=== PATIENT | female | born 1975 | race Two or more races ===

== ENCOUNTER 2018-04-09 00:54 | Emergency (ER) | payer OTHER ==
[2018-04-09] MEDS ORDERED: ONDANSETRON HCL INJ/PF 4 MG/2 ML SDV IV ONE (01:15)
[2018-04-09] MEDS ORDERED: NORMAL SALINE 1000 ML 1,000 ML IV ONE ×2 (01:15→03:21)
[2018-04-09 01:24] LABS: ABSOLUTE LYMPHOCYTES (AUTO) 0.5 10^3/uL (0.5-4.7); ABSOLUTE MONOCYTES (AUTO) 0.1 10^3/uL (0.1-1.4); ABSOLUTE NEUT (AUTO) 6.2 10^3/uL (1.7-8.2); BASOPHILS % (AUTO) 0.4 % (0-2); HEMATOCRIT 47.9 % (36.0-47.0); HEMOGLOBIN 16.3 g/dL (12.0-15.5); LYMPHOCYTES % (AUTO) 7.5 % (13-45); MEAN CORPUSCULAR HEMOGLOBIN 31.9 pg (27.0-33.4); MEAN CORPUSCULAR VOLUME 94 fl (80-97); MONOCYTES % (AUTO) 1.9 % (3-13); PLATELET COUNT 230 10^3/uL (150-450); RED CELL DISTRIBUTION WIDTH 13.1 % (11.5-14.0); SEGMENTED NEUTROPHILS % (AUTO) 90.2 % (42-78); TOTAL CELLS COUNTED % (AUTO) 100 %; WHITE BLOOD COUNT 6.8 10^3/uL (4.0-10.5)
--- NOTE | 2018-04-09 01:25 | ER Document Report ---
ED General - General Chief Complaint: Abdominal Pain Stated Complaint: ABDOMINAL PAIN Time Seen by Provider: 04/09/18 01:14 TRAVEL OUTSIDE OF THE [place] IN LAST 30 DAYS: No - HPI Notes: Patient is a 43-year-old female with a history of hypertension, not currently on medications, who presents to the ED complaining of nausea, vomiting, diarrhea 24 hours as well as developing bilateral sternal chest soreness that began this past evening after she had vomited a few times. Patient states that the pain does not radiate. Patient does have abdominal cramping that comes in waves, but has periods of no pain at all. Patient states that when she vomits or has diarrhea, the cramping resolves. Patient states that the stomach illness is running through her household at this time. She has been unable to keep any fluids or food down which brought her to the emergency department. Patient was on amlodipine 5 mg for her blood pressure. She denies any other significant cardiopulmonary medical history. Denies any prolonged immobilization, recent surgery/trauma, previous DVT/PE, hormone replacement. Patient does admit to smoking but denies IV drug use. Denies any headache, fever, neck pain, URI, sore throat, palpitations, syncope, cough, shortness of breath, wheeze, dyspnea, urinary retention, dysuria, hematuria, back pain, loss of control of bowel or bladder, numbness/tingling, saddle anesthesia, muscle paralysis/weakness, or rash. - Related Data Allergies/Adverse Reactions: Penicillins Allergy (Severe, Verified 03/26/16 01:46) Hives Past Medical History - Social History Smoking Status: Current Every Day Smoker Family History: Reviewed & Not Pertinent - Past Medical History Cardiac Medical History: Reports: Hx Hypertension Pulmonary Medical History: Reports: Hx Bronchitis - Immunizations Hx Diphtheria, Pertussis, Tetanus Vaccination: Yes Review of Systems - Review of Systems -: Yes All other systems reviewed and negative Physical Exam - Vital signs Vitals: Temp Pulse Resp BP Pulse Ox 98.2 F 84 32 H 194/127 H 99 04/09/18 01:01 04/09/18 01:01 04/09/18 01:01 04/09/18 01:01 04/09/18 01:01 - Notes Notes: PHYSICAL EXAMINATION: GENERAL: Well-appearing, well-nourished and in no acute distress, but did vomit with me in the room. A&ox4. Answers questions appropriately. HEAD: Atraumatic, normocephalic. EYES: Pupils equal round and reactive to light, extraocular movements intact, sclera anicteric, conjunctiva are normal. No nystagmus. ENT: EAC clear b/l. TM's intact b/l without erythema, fluid, or perforation. Nares patent and without discharge. oropharynx clear without exudates. No tonsilar hypertrophy or erythema. Moist mucous membranes. No sinus tenderness. NECK: Normal range of motion, supple without lymphadenopathy Chest: + tenderness to the b/l medial sternal area, correlates with pain described. No flail chest. LUNGS: Breath sounds clear to auscultation bilaterally and equal. No wheezes rales or rhonchi. HEART: Regular rate and rhythm without murmurs, rubs, gallops. ABDOMEN: Soft, nontender, nondistended abdomen. No guarding, no rebound. No masses appreciated. Normal bowel sounds present. No CVA tenderness bilaterally. Musculoskeletal: FROM to passive/active. Strength 5+/5. Sheyla neg b/l. Extremities: No cyanosis, clubbing, or edema b/l. Peripheral pulses 2+. Capillary refill less than 3 seconds. NEUROLOGICAL: Cranial nerves grossly intact. Normal speech, normal gait. Normal sensory, motor exams PSYCH: Normal mood, normal affect. SKIN: Warm, Dry, normal turgor, no rashes or lesions noted. Course - Re-evaluation Re-evalutation: 04/09/18 01:[address] Barr. We will get the nausea under control and then give her her amlodipine med and hctz. 04/09/18 04:24 Patient is an afebrile, well-hydrated, 43-year-old female who presents to the ED with nausea, vomiting, diarrhea, suspect viral. Patient also has elevated blood pressure which has improved to acceptable standards. Vitals are otherwise acceptable. PE is otherwise unremarkable. Patient's abdomen is soft and nontender. She is nontoxic-appearing. She is now tolerating p.o. without any difficulties. She is no significant tachycardia, tachypnea, or hypoxia. Patient was given fluids as well as Zofran and Phenergan. She did receive 5 mg of amlodipine. No hctz given as her blood pressure is currently 148/91 from what it was before. CBC, CMP, lipase were unremarkable for any acute pathology. Cardiac enzymes/EKG/CXR unremarkable for any acute pathology. Patient has reproducible chest wall tenderness on exam. Patient has a heart score of 2. Patient is otherwise PERC negative. No other labs or imaging warranted at this time based on H&P. Low suspicion for any ACS, PE, pneumothorax, pericarditis, dissection, respiratory compromise, severe dehydration, sepsis, meningitis, acute abdomen, or other systemic emergent condition at this time. Patient is aware that her condition can change from initial presentation and she needs to monitor symptoms closely and seek medical attention for any acute changes. I will send her home with a prescription for Phenergan. Conservative measures otherwise for symptoms. Recheck with your PCM in 2-3 days. Consider consult with gastroenterology. Return to the ED with any worsening/concerning symptoms otherwise as reviewed discharge. Patient is in agreement. - Vital Signs Vital signs: Temp Pulse Resp BP Pulse Ox 98.2 F 84 20 148/91 H 98 04/09/18 01:01 04/09/18 01:01 04/09/18 04:01 04/09/18 04:01 04/09/18 04:01 - Laboratory Result Diagrams: 04/09/18 01:15 04/09/18 01:15 Laboratory results interpreted by me: 04/09/18 04/09/18 01:15 01:15 Hgb 16.3 H Hct 47.9 H Seg Neutrophils % 90.2 H Lymphocytes % 7.5 L Monocytes % 1.9 L Sodium 148.7 H Glucose 144 H Discharge - Discharge Clinical Impression: Acute gastroenteritis, Chest wall pain Condition: Stable Disposition: HOME, SELF-CARE Instructions: Abdominal Pain ([facility]), Antinausea Medication ([facility]), Chest Wall Pain ([facility]), Gastroenteritis (adult) ([facility]) Additional Instructions: Maintain adequate fluid and food intake [place]e diet ([employer] Bananas, rice, apples, toast, etc Zofran as needed tylenol if needed Monitor for any worsening symptoms Make sure you are staying hydrated enough to urinate and have normal BM's Recheck with your PCM in 2-3 days Consider consult with Gastroenterology for ongoing/worsening symptoms Return to the ED with any worsening symptoms and/or development of fever, headache, chest pain, palpitations, syncope, shortness of breath, trouble breathing, abdominal pain, n/v/d, blood in stool/urine, weakness, or other worsening symptoms that are concerning to you. Prescriptions: Promethazine HCl [Phenergan 25 mg Tablet] 1 tab PO Q6H PRN #15 tablet PRN Reason: Forms: Elevated Blood Pressure, Smoking Cessation Education Referrals: [facility] [Provider Group] - Follow up as needed [facility] [Provider Group] - Follow up as needed ITALO MCKEON MD [ACTIVE STAFF] - Follow up as needed
[2018-04-09] MEDS ORDERED: PROMETHAZINE HCL INJ 25 MG/1 ML VIAL IM ONE (01:36)
[2018-04-09 01:42] LABS: ALANINE AMINOTRANSFERASE 27 U/L (9-52); ALBUMIN 4.7 g/dL (3.5-5.0); ALKALINE PHOSPHATASE 74 U/L (38-126); ANION GAP 18 (5-19); ASPARTATE AMINO TRANSFERASE 20 U/L (14-36); BILIRUBIN,DIRECT 0.3 mg/dL (0.0-0.4); BILIRUBIN,TOTAL 1.3 mg/dL (0.2-1.3); BLOOD UREA NITROGEN 10 mg/dL (7-20); CALCIUM 9.9 mg/dL (8.4-10.2); CARBON DIOXIDE 24 mmol/L (22-30); CHLORIDE 107 mmol/L (98-107); GLUCOSE 144 mg/dL (75-110); LIPASE 34.1 U/L (23-300); POTASSIUM 3.7 mmol/L (3.6-5.0); SODIUM 148.7 mmol/L (137-145); TOTAL PROTEIN 7.9 g/dL (6.3-8.2)
--- NOTE | 2018-04-09 01:49 | RADIOLOGY REPORT (SQ) ---
EXAM DESCRIPTION: Single view of the chest CLINICAL HISTORY: chest pain COMPARISON: 10/21/2014 FINDINGS: Single frontal view of the chest. The cardiomediastinal silhouette has normal size and contour. No consolidation, pneumothorax, or pleural effusion. No displaced rib fractures identified. Leads overlie the chest Upper abdominal soft tissues are unremarkable. IMPRESSION: 1. No acute pulmonary process identified.
[2018-04-09 01:53] LABS: CREATINE KINASE MB 0.85 ng/mL (<4.55)
[2018-04-09 01:54] LABS: TROPONIN I < 0.012 ng/mL
[2018-04-09] MEDS ORDERED: AMLODIPINE BESYLATE 5 MG TABLET PO ONE (02:33)
[2018-04-09 04:41] VITALS: BP 131/92
--- NOTE | 2018-04-09 09:57 | EKG REPORT ---
SEVERITY:- ABNORMAL ECG - SINUS RHYTHM PROLONGED QT INTERVAL : Confirmed by: Jacques Sommer 09-Apr-2018 09:57:00
== END 2018-04-09 05:01 | disposition home or self-care (01) ==
LOC: ER 00:54
DX: K52.9 Noninfective gastroenteritis and colitis, unspecified (principal); R07.89 Other chest pain; R11.2 Nausea with vomiting, unspecified; R10.9 Unspecified abdominal pain; I10 Essential (primary) hypertension; F17.200 Nicotine dependence, unspecified, uncomplicated; Z88.0 Allergy status to penicillin
CPT/HCPCS: 93005; 99284; 96372; 96361; 96374; 36415; 82553; 82550; 83690; 85025; 80053; 84484; 71045; 93010; J2550; J2405; J7030

== ENCOUNTER 2018-05-26 17:30 | Emergency (ER) | payer OTHER ==
[2018-05-26] MEDS ORDERED: LIDOCAINE 1% INJ-PF (10 MG/ML) 30 ML SDV INJ ONE (19:12)
[2018-05-26] MEDS ORDERED: HYDROCODONE/ACETAMINOPHEN 5-325 MG TABLET PO ONE (19:12)
--- NOTE | 2018-05-26 20:00 | RADIOLOGY REPORT (SQ) ---
EXAM DESCRIPTION: HAND RIGHT 3 VIEWS COMPLETED DATE/TIME: 05/26/2018 7:31 pm REASON FOR STUDY: r/o FB COMPARISON: None. EXAM PARAMETERS: NUMBER OF VIEWS: Three views. TECHNIQUE: AP, lateral and oblique radiographic images acquired of the right hand. LIMITATIONS: None. FINDINGS: MINERALIZATION: Normal. BONES: No acute fracture or dislocation. No worrisome bone lesions. JOINTS: No effusions. SOFT TISSUES: Small radiopaque foreign body is seen adjacent to the neck of the 1st proximal phalanx. OTHER: No other significant finding. IMPRESSION: Foreign body adjacent to the neck of the 1st proximal phalanx. TECHNICAL DOCUMENTATION: JOB ID: [id number] [employer]- All Rights Reserved Reading location - IP/workstation name: [email or web address]
[2018-05-26] MEDS ORDERED: DIPH/PERTUSS(ACELL)/TETANUS VAC/PF 0.5 ML SYR (>=10YO) IM ONE (20:45)
[2018-05-26] MEDS ORDERED: DOXYCYCLINE HYCLATE 100 MG TABLET PO ONE (20:48)
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
[2018-05-26 21:23] VITALS: BP 201/109
== END 2018-05-26 21:23 | disposition home or self-care (01) ==
LOC: ER 17:30
PROC: 0HQFXZZ Repair Right Hand Skin, External Approach (ICD-10-PCS; principal; 2018-05-26)
DX: S61.411A Laceration without foreign body of right hand, initial encounter (principal); S60.416A Abrasion of right little finger, initial encounter; W01.110A Fall on same level from slipping, tripping and stumbling with subsequent striking against sharp glass, initial encounter; F17.200 Nicotine dependence, unspecified, uncomplicated; I10 Essential (primary) hypertension; Z23 Encounter for immunization; Z88.0 Allergy status to penicillin; Z90.710 Acquired absence of both cervix and uterus
CPT/HCPCS: 99283; 90471; 73130; 90715; 12001; J3490

== ENCOUNTER 2019-09-26 20:53 | Emergency (ER) | payer OTHER ==
[2019-09-26] MEDS ORDERED: OXYCODONE-ACETAMINOPHEN 5-325 MG TABLET PO ONE (21:24)
[2019-09-26] MEDS ORDERED: ONDANSETRON 4 MG TAB.RAPDIS PO ONE (21:25)
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
[2019-09-26] MEDS ORDERED: AMLODIPINE BESYLATE 5 MG TABLET PO ONE (22:51)
[2019-09-26 23:23] VITALS: BP 145/99
== END 2019-09-26 23:24 | disposition home or self-care (01) ==
LOC: ER 20:53
DX: S16.1XXA Strain of muscle, fascia and tendon at neck level, initial encounter (principal); S09.90XA Unspecified injury of head, initial encounter; S20.219A Contusion of unspecified front wall of thorax, initial encounter; E07.9 Disorder of thyroid, unspecified; V43.52XA Car driver injured in collision with other type car in traffic accident, initial encounter; I10 Essential (primary) hypertension; Z88.0 Allergy status to penicillin; Z90.710 Acquired absence of both cervix and uterus
CPT/HCPCS: 71046; 70450; 72125; S0119; 99284